=== PATIENT | male | born 1955 | race Caucasian/White ===

== ENCOUNTER 2019-02-20 08:49 | Day surgery (SDC) | payer BC ==
[2019-02-19 16:28] VITALS: BMI 30.2
[2019-02-20 09:15] VITALS: TEMP 98.2
[2019-02-20 11:35] VITALS: BP 118/64; PULSE 64
--- NOTE | 2019-02-21 11:26 | PATH ---
Surgical Pathology Report Patient Name: JENNY BONE [facility]. Rec. #: [id number] /Age/Gender: 1955 (Age: 63) / M Account: [id number] Location: [facility]OSCOPY Taken: 02/20/2019 Received: 02/20/2019 Reported: 02/21/2019 Physicians: Curtis Mario M.D. Specimen(s) Received A: RECTUM B: SIGMOID Clinical History Colon polyps, surveillance, hemorrhoids Final Diagnosis A. RECTUM, POLYPS, BIOPSY: HYPERPLASTIC POLYP(S). B. SIGMOID COLON, POLYPS, BIOPSY: TUBULAR ADENOMA(S). HYPERPLASTIC POLYP(S). Electronically Signed Letitia Cao M.D. Gross Description A. Received in formalin, labeled "polyps rectum" are 2 bauman, irregular portions of soft tissue measuring 0.3 cm. in greatest dimension. The specimens are submitted in toto in one cassette. B. Received in formalin, labeled "polyps sigmoid" are 9 bauman, irregular portions of soft tissue measuring 0.6 x 0.5 x 0.1cm. in aggregate. The specimens are submitted in toto in one cassette. SUSAN/02/20/2019 allegra/02/20/2019
== END 2019-02-20 11:41 | disposition home or self-care (01) ==
LOC: JASU-ENDO 08:49
PROVIDERS: ATTEND Internal Medicine Gastroenterology
PROC: 0DBN8ZX Excision of Sigmoid Colon, Via Natural or Artificial Opening Endoscopic, Diagnostic (ICD-10-PCS; 2019-02-20)
PROC: 0DBP8ZX Excision of Rectum, Via Natural or Artificial Opening Endoscopic, Diagnostic (ICD-10-PCS; principal; 2019-02-20 09:45)
DX: Z12.11 Encounter for screening for malignant neoplasm of colon (principal); K62.1 Rectal polyp; D12.5 Benign neoplasm of sigmoid colon; K57.30 Diverticulosis of large intestine without perforation or abscess without bleeding; E11.9 Type 2 diabetes mellitus without complications
CPT/HCPCS: 88305-TC

== ENCOUNTER 2019-10-19 13:59 | Emergency (ER) | payer BC ==
[2019-10-19 14:11] VITALS: BMI 28.7
[2019-10-19] MEDS ORDERED: SODIUM CHLORIDE 0.9% 500 ML INFUS.BAG IV ONE (14:34)
--- NOTE | 2019-10-19 15:08 | PDOC ---
*Physical Exam - Vital Signs Last Vital Signs Temp Pulse Resp BP Pulse Ox 98.4 F 83 16 149/76 98 10/19/19 14:07 10/19/19 14:07 10/19/19 14:07 10/19/19 14:07 10/19/19 14:07 ED Treatment Course - LABORATORY CBC & Chemistry Diagram: 10/19/19 15:20 10/19/19 15:20 Medical Decision Making - Medical Decision Making 10/19/19 15:08 Pt seen by Midlevel Provider under my direct supervision Pt interviewed and examined Ancillary studies reviewed Laboratory Tests 10/19/19 10/19/19 10/19/19 15:20 15:20 15:20 WBC 8.3 Neutrophils % 79.4 BUN 22.0 H Creatinine 1.3 Random Glucose 521 H* Synovial WBC 06926 I agree with plan as outlined by Midlevel Provider 10/19/19 18:21 Discharge - Discharge Information Condition: Stable - Follow up/Referral Referrals: Cory Vaz MD [Primary Care Provider] - - Patient Discharge Instructions - Post Discharge Activity
[2019-10-19] MEDS ORDERED: CEFAZOLIN 1 GM PUSH 1 GM/10 ML SYRINGE IVPUSH ONE (15:30)
--- NOTE | 2019-10-19 15:36 | PDOC ---
History of Present Illness - General Chief Complaint: Wound Stated Complaint: wound Time Seen by Provider: 10/19/19 14:18 History Source: Patient Exam Limitations: No Limitations - History of Present Illness Initial Comments: 10/19/19 15:28 Pt is a 64 y/o male with a history of Type II DM with a last A1C of ~8 presents to the ED with 7 days of R elbow pain, swelling and redness. He states the redness and swelling has been worsening over the last week. He admits to picking a scab at some point and red blood was draining. He denies any fevers or chills. He denies any change in appetite. He has not taken anything for his elbow. He states his elbow feels tight to move but does not hurt. He denies any other past medical history . Past History - Past Medical History Allergies/Adverse Reactions: Allergies Allergy/AdvReac Type Severity Reaction Status Date / Time bee venom protein (honey bee) Allergy Verified 02/19/19 16:23 shellfish derived Allergy Verified 02/19/19 16:23 Penicillins AdvReac Vomiting, Verified 02/20/19 08:59 DIARRHEA Home Medications: Ambulatory Orders Ascorbate Calcium [Vitamin C] 500 mg PO DAILY 02/19/19 Gabapentin 600 mg PO TID 02/19/19 Glipizide 10 mg PO DAILY 02/19/19 Linagliptin [Tradjenta] 5 mg PO DAILY 02/19/19 Multivitamin [Poly-Vitamin] 1 each PO DAILY 02/19/19 Silodosin [Rapaflo] 8 mg PO DAILY 02/19/19 Doxycycline Hyclate 100 mg PO BID 10 Days #20 tablet 10/19/19 COPD: No Diabetes: Yes HTN: No - Surgical History Cholecystectomy: No - Immunization History Immunization Up to Date: No - Psycho Social/Smoking Cessation Hx Smoking History: Never smoked Have you smoked in the past 12 months: No If you are a former smoker, when did you quit?: 2010 Information on smoking cessation initiated: No Hx Alcohol Use: No Drug/Substance Use Hx: No Substance Use Type: None Hx Substance Use Treatment: No Review of Systems - Review of Systems Comments:: 10/19/19 15:31 - Review of Systems Able to Perform ROS?: Yes Constitutional: No: Fever, Chills, Loss of Appetite, Night Sweats, Weakness Respiratory: No: Cough, Shortness of Breath, Wheezing, Sputum Production Cardiac (ROS): No: Chest Pain, Chest Tightness, Palpitations, Irregular Heart Beat, Edema ABD/GI: No: Nausea, Vomiting, Abdominal Pain, Diarrhea Musculoskeletal: No: Muscle Pain, Back Pain, Joint Pain, Muscle Weakness, Neck Pain Integumentary: R elbow redness, swelling, no pain with ROM Neurological: No: Headache, Numbness, Tingling, Weakness, Speech Difficulties *Physical Exam - Vital Signs Last Vital Signs Temp Pulse Resp BP Pulse Ox 98.4 F 83 16 149/76 98 10/19/19 14:07 10/19/19 14:07 10/19/19 14:07 10/19/19 14:07 10/19/19 14:07 - Physical Exam 10/19/19 15:32 - Physical Exam General Appearance: Nourished, Appropriately Dressed, No Distress Neck: Supple, No Rigidity, No Decreased range of motion Respiratory/Chest: Lungs Clear, Normal Breath Sounds. No Respiratory Distress, No Accessory Muscle Use Cardiovascular: Regular Rhythm, Regular Rate, S1, S2 Gastrointestinal/Abdominal: Normal Bowel Sounds, Soft. Non-tender, No Guarding , No Rebound, No Rigidity Musculoskeletal: Normal Inspection. No Decreased Range of Motion; Normal ROM of the R elbow without any tenderness Extremity: Normal Capillary Refill, Normal Inspection Integumentary: Normal Color, Dry. No Rash; R olecranon bursitis with fluctuance appreciated. No drainage appreciated. Erythema/cellulitis appreciated from the mid forearm to the mid upper arm and not Circumferential. 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, Fully Oriented, Alert, Normal Mood/Affect, Normal Response Procedures - Arthrocentesis Indication: Other (Olecranon bursitis possible infected) Arthrocentesis Site: right: elbow Flexion: >30 degrees Betadine Prep: Yes Sterile Dressing Applied: Yes Fluid Color: Bloody (Serosanguineous) Fluid Amount mL: 2 Needle Size (guage): 18g Complications: No ED Treatment Course - LABORATORY CBC & Chemistry Diagram: 10/19/19 15:20 10/19/19 15:20 - ADDITIONAL ORDERS Additional order review: 10/19/19 20:01 Laboratory Tests 10/19/19 10/19/19 10/19/19 15:20 15:20 15:20 WBC 8.3 RBC 5.15 Hgb 15.5 Hct 46.1 MCV 89.5 MCH 30.1 MCHC 33.6 RDW 13.1 Plt Count 157 MPV 9.1 Absolute Neuts (auto) 6.6 Neutrophils % 79.4 Lymphocytes % 12.0 Monocytes % 7.6 Eosinophils % 0.7 Basophils % 0.3 Nucleated RBC % 0 PT with INR 11.70 INR 0.99 PTT (Actin FS) 32.3 Sodium 136 Potassium 4.3 Chloride 99 Carbon Dioxide 31 Anion Gap 6 L BUN 22.0 H Creatinine 1.3 Est GFR (CKD-EPI)AfAm 66.83 Est GFR (CKD-EPI)NonAf 57.66 POC Glucometer Random Glucose 521 H* Calcium 9.6 Total Bilirubin 0.6 AST 34 ALT 93 H Alkaline Phosphatase 64 Total Protein 7.0 Albumin 3.9 Synovial Source Synovial WBC Synovial RBC Synovial Neutrophils Synovial Lymphocytes Synovial Monocytes Synovial Histocytes Synovial Plasma Cells Synovial LE Cells Synovial Macrophages Synovial Other Cells Synovial Diff Comment Synovial Crystals 10/19/19 10/19/19 10/19/19 15:20 15:20 17:18 WBC RBC Hgb Hct MCV MCH MCHC RDW Plt Count MPV Absolute Neuts (auto) Neutrophils % Lymphocytes % Monocytes % Eosinophils % Basophils % Nucleated RBC % PT with INR INR PTT (Actin FS) Sodium Potassium Chloride Carbon Dioxide Anion Gap BUN Creatinine Est GFR (CKD-EPI)AfAm Est GFR (CKD-EPI)NonAf POC Glucometer 436 Random Glucose Calcium Total Bilirubin AST ALT Alkaline Phosphatase Total Protein Albumin Synovial Source Synovial fluid Synovial WBC 34621 Synovial RBC 43566 Synovial Neutrophils 94 Synovial Lymphocytes 1 Synovial Monocytes 5 Synovial Histocytes No Result Required. Synovial Plasma Cells No Result Required. Synovial LE Cells No Result Required. Synovial Macrophages No Result Required. Synovial Other Cells No Result Required. Synovial Diff Comment No Result Required. Synovial Crystals Negative - RADIOLOGY Radiology Studies Ordered: Category Date Time Status ELBOW-RIGHT [RAD] Stat Radiology 10/19/19 14:34 Ordered Radiograph Interpretation: 10/19/19 15:57 R elbow xray wet read: no acute fracture or dislocation. No evidence of gas on xray. Medical Decision Making - Medical Decision Making 10/19/19 17:38 Patient's elbow aspiration does not show concern for infection in the joint as the WBC count was 15,000. This is more indicative of an inflammatory process. The patient's blood glucose levels was 512 mg/dL and the patient admits that he did not take his diabetes medication yesterday or today. After 2 L of normal saline, the patient's blood glucose level was 436 mg/dL. 2 units of insulin IV was given and we will reassess the patient in roughly 30 minutes. He otherwise feels well. If his blood glucose level is downtrending we will consider discharge on doxycycline with follow-up to orthopedics. 10/19/19 19:48 Pt blood glucose now 390 mg/dL and downtrending. He will go home and take his normal DM medications and Has been encouraged to be diligent about checking his sugars. He will follow-up with orthopedics within 1 to 2 days for repeat evaluation. He has been given strict return precautions such as high fevers, shaking chills, profuse vomiting, worsening elbow erythema, pain with elbow range of motion, red streaking or any other worsening symptoms. He has been encouraged to complete his antibiotic course. He understands and agrees with this treatment plan and the patient is stable for discharge. Discharge - Discharge Information Problems reviewed: Yes Clinical Impression/Diagnosis: Olecranon bursitis of right elbow, Cellulitis of right upper extremity Condition: Stable Disposition: HOME - Additional Discharge Information Prescriptions: Doxycycline Hyclate 100 mg PO BID 10 Days #20 tablet - Follow up/Referral Referrals: Cory Vaz MD [Primary Care Provider] - Ashu Monk MD [Staff Physician] - - Patient Discharge Instructions Patient Printed Discharge Instructions: DI for Elbow Bursitis, DI for Cellulitis -- Adult Additional Instructions: Take the antibiotics as prescribed and complete the entire course. Be sure to follow-up with your primary doctor or Dr. Monk of orthopedics within 1 to 2 days for repeat evaluation. Return to the emergency department for high fevers , shaking chills, red streaking, worsening cellulitis, pain with bending your elbow, profuse vomiting, pus from your elbow or any other worsening symptoms. - Post Discharge Activity Work/Back to School Note: Back to Work
[2019-10-19] MEDS ORDERED: CEFAZOLIN 1 GM/D5W 1 GM/50 ML BAG IVPB ONE (16:00)
[2019-10-19 16:01] LABS: BASO % 0.3 % (0-2.0); EOS % 0.7 % (0-4.5); HEMATOCRIT 46.1 % (35.4-49); HEMOGLOBIN 15.5 GM/dL (11.7-16.9); MCH 30.1 pg (25.7-33.7); MCHC 33.6 g/dl (32.0-35.9); MEAN CELL VOLUME 89.5 fl (80-96); MEAN PLT VOLUME 9.1 fl (7.5-11.1); MONO % 7.6 % (3.8-10.2); NEUT % 79.4 % (42.8-82.8); PLATELET COUNT 157 K/MM3 (134-434); RBC 5.15 M/mm3 (4.00-5.60); RDW 13.1 % (11.9-15.9); WHITE BLOOD COUNT 8.3 K/mm3 (4.0-10.0)
[2019-10-19 16:10] LABS: INR 0.99 (0.83-1.09); PROTHROMBIN TIME (PATIENT) 11.7 SEC (9.7-13.0)
[2019-10-19 16:13] LABS: ACTIVATED PTT 32.3 SECONDS (25.2-36.5)
[2019-10-19] MEDS ORDERED: CEFAZOLIN 1 GM/D5W 1 GM/50 ML BAG ONE (16:14)
[2019-10-19 16:29] LABS: ALBUMIN 3.9 g/dl (3.4-5.0); BILIRUBIN,TOTAL 0.6 mg/dL (0.2-1); CALCIUM 9.6 mg/dL (8.5-10.1); CREATININE 1.3 mg/dL (0.55-1.3); POTASSIUM 4.3 mmol/L (3.5-5.1)
[2019-10-19 17:00] LABS: SYNOVIAL FLUID SOURCE SYNOVIAL FLUID
[2019-10-19 17:01] LABS: SYNOVIAL FLUID LYMPHOCYTES 1 %; SYNOVIAL FLUID MONOCYTES 5 %; SYNOVIAL FLUID NEUTROPHILS 94 %; SYNOVIAL FLUID RBC 24781 /mm3
[2019-10-19] MEDS ORDERED: INSULIN REGULAR HUMAN 100 UNITS/ML *VIAL IVPUSH ONE (17:30)
[2019-10-19 20:16] VITALS: BP 140/78; PULSE 80; TEMP 98.7
== END 2019-10-19 20:15 | disposition home or self-care (01) ==
LOC: JER 13:59
PROC: 0M933ZZ Drainage of Right Elbow Bursa and Ligament, Percutaneous Approach (ICD-10-PCS; principal; 2019-10-19)
PROC: 3E03329 Introduction of Other Anti-infective into Peripheral Vein, Percutaneous Approach (ICD-10-PCS; 2019-10-19)
PROC: 3E033VG Introduction of Insulin into Peripheral Vein, Percutaneous Approach (ICD-10-PCS; 2019-10-19)
DX: M70.21 Olecranon bursitis, right elbow (principal); L03.113 Cellulitis of right upper limb; E11.65 Type 2 diabetes mellitus with hyperglycemia; Z79.84 Long term (current) use of oral hypoglycemic drugs; Z91.013 Allergy to seafood; Z88.0 Allergy status to penicillin; Z91.030 Bee allergy status
CPT/HCPCS: 36415; 73070-TC-RT-FY; 80053; 82962; 85025; 85610; 85730; 87040; 87070; 87075; 87186; 87205; 89051; 89060; 99283-25

== ENCOUNTER 2019-10-20 22:25 | Inpatient (IN) | payer BC ==
[2019-10-20 23:01] VITALS: BMI 28.7
--- NOTE | 2019-10-20 23:30 | PDOC ---
History of Present Illness - General Chief Complaint: Edema Stated Complaint: SENT BY DOCTOR Time Seen by Provider: 10/20/19 23:30 History Source: Patient Exam Limitations: No Limitations - History of Present Illness Initial Comments: 10/20/19 23:42 64yM w PMHx DM, mitral valve prolapse presenting w 7d worsening R elbow warmth, erythema. Yesterday diagnosed with R olecranon bursitis and cellulitis, hyperglycemia BG 512, given IV ancef and insulin, bursitis drained, arm XR no fracture or bony involvement, discharged on doxycycline. Today noted R arm swelling and spreading erythema. Normal arm sensation/movement, denies arm pain. Denies fever/chills, nausea/vomiting, cough, chest pain, SOB. Pt's allergy to penicillins is nausea Past History - Past Medical History Allergies/Adverse Reactions: Allergies Allergy/AdvReac Type Severity Reaction Status Date / Time bee venom protein (honey bee) Allergy Verified 02/19/19 16:23 shellfish derived Allergy Verified 02/19/19 16:23 Penicillins AdvReac Vomiting, Verified 02/20/19 08:59 DIARRHEA Home Medications: Ambulatory Orders Ascorbate Calcium [Vitamin C] 500 mg PO DAILY 02/19/19 Gabapentin 600 mg PO TID 02/19/19 Glipizide 10 mg PO DAILY 02/19/19 Linagliptin [Tradjenta] 5 mg PO DAILY 02/19/19 Multivitamin [Poly-Vitamin] 1 each PO DAILY 02/19/19 Silodosin [Rapaflo] 8 mg PO DAILY 02/19/19 Doxycycline Hyclate 100 mg PO BID 10 Days #20 tablet 10/19/19 Cardiac Disorders: Yes (Mitral Valve prolapse) COPD: No Diabetes: Yes HTN: No - Surgical History Cholecystectomy: No - Immunization History Immunization Up to Date: No - Psycho Social/Smoking Cessation Hx Smoking History: Former smoker Have you smoked in the past 12 months: No If you are a former smoker, when did you quit?: 2010 Information on smoking cessation initiated: No Hx Alcohol Use: No Drug/Substance Use Hx: No Substance Use Type: None Hx Substance Use Treatment: No Review of Systems - Review of Systems Constitutional: No: Chills, Fever HEENTM: No: Blurred Vision, Nose Pain, Throat Pain, Mouth Pain Respiratory: No: Cough, Shortness of Breath Cardiac (ROS): No: Chest Pain, Palpitations, Syncope ABD/GI: No: Abdominal Distended, Constipated, Diarrhea, Nausea, Vomiting : No: Burning, Dysuria, Discharge, Hematuria Musculoskeletal: No: Back Pain, Joint Pain Integumentary: No: Bruising, Flushing, Lesions Neurological: No: Headache, Seizure, Tingling Psychiatric: No: Anxiety, Depression, Stressors Endocrine: No: Excessive Sweating, Flushing, Intolerance to Cold, Intolerance to Heat Hematologic/Lymphatic: No: Anemia, Blood Clots *Physical Exam - Vital Signs Last Vital Signs Temp Pulse Resp BP Pulse Ox 98.5 F 76 19 127/64 95 10/20/19 22:57 10/20/19 22:57 10/20/19 22:57 10/20/19 22:57 10/20/19 22:57 - Physical Exam General Appearance: Yes: Nourished, Appropriately Dressed. No: Apparent Distress HEENT: positive: EOMI, PAPI, Normal Voice, Hearing Grossly Normal. negative: Scleral Icterus (R), Scleral Icterus (L), Nasal Congestion, Rhinorrhea Respiratory/Chest: positive: Lungs Clear, Normal Breath Sounds. negative: Chest Tender, Respiratory Distress, Crackles, Rales, Rhonchi, Stridor, Wheezing Cardiovascular: positive: Regular Rhythm, Regular Rate, S1, S2, Other (mitral valve prolapse) Integumentary: positive: Erythema (R arm), Other (R elbow 5cm non tender mobile mass. 2+ R arm edema, warmth up to mid humerus. Not tender. 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 negative: Numbness, Sensory Deficit, Confused, Disoriented ED Treatment Course - LABORATORY CBC & Chemistry Diagram: 10/20/19 00:30 10/20/19 00:30 Medical Decision Making - Medical Decision Making 10/20/19 23:47 EKG NSR, HR 63, QTc 427, no ST changes normal WBC --- 64yM w PMHx NIDDM, mitral valve prolapse presenting w 7d worsening R elbow warmth, erythema, edema d/t cellulitis. Low concern for nec fasciits (yesterday XR no boy involvement). Neurovascular intact. Also hyperglycemic BG 304 Pt developed skin slouging, redness from Tegaderm over peripheral IV. Re- secured with paper tape Given vancomycin, clindamycin. Pending blood cultures Admit m/s hospitalist for cellulitis failing outpatient therapy, requiring IV antibiotics PCP Dr Cory Vaz Discharge - Discharge Information Problems reviewed: Yes Clinical Impression/Diagnosis: Cellulitis Qualifiers: Site of cellulitis: extremity Site of cellulitis of extremity: upper extremity Laterality: right Qualified Code(s): L03.113 - Cellulitis of right upper limb Condition: Good - Follow up/Referral Referrals: Cory Vaz MD [Primary Care Provider] - - Patient Discharge Instructions - Post Discharge Activity
--- NOTE | 2019-10-20 23:32 | PDOC ---
Attending Attestation - Resident Resident Name: Aram Jackson - ED Attending Attestation I have performed the following: I have examined & evaluated the patient, The case was reviewed & discussed with the resident, I agree w/resident's findings & plan - HPI HPI: 10/20/19 23:31 Pt comes with worsening cellulitis over his elbow. He was seen here yesterday in the fast track area. - Physicial Exam PE: 10/21/19 02:53 Agree with resident exam. - Medical Decision Making 10/21/19 02:53 Pt comes with worsening cellulitis and poorly controlled DM; despite outpatient abx. Pt will be admitted for IV abx.
[2019-10-20] MEDS ORDERED: VANCOMYCIN 1 GM in D5W (PRE-DOCKED) 1,000 MG/250 ML IVPB ONE (23:40)
[2019-10-21] MEDS ORDERED: CLINDAMYCIN 600MG PREMIX IVPB 600 MG/50 ML BAG IVPB ONE ×2 (00:10→01:09)
[2019-10-21 01:05] LABS: BASO % 0.3 % (0-2.0); EOS % 0.6 % (0-4.5); HEMATOCRIT 44.7 % (35.4-49); HEMOGLOBIN 15.6 GM/dL (11.7-16.9); LYMPH % 12.9 % (8-40); MCH 31.3 pg (25.7-33.7); MCHC 34.9 g/dl (32.0-35.9); MEAN CELL VOLUME 89.4 fl (80-96); MEAN PLT VOLUME 8.9 fl (7.5-11.1); NEUT % 77.2 % (42.8-82.8); PLATELET COUNT 157 K/MM3 (134-434)
[2019-10-21] MEDS ORDERED: VANCOMYCIN 1 GRAM (PRE-DOCKED) 1,000 MG/250 ML BAG IVPB ONE (01:09)
[2019-10-21 01:25] LABS: ALBUMIN 3.8 g/dl (3.4-5.0); BILIRUBIN,TOTAL 0.5 mg/dL (0.2-1); BLOOD UREA NITROGEN 24.4 mg/dL (7-18); CALCIUM 8.9 mg/dL (8.5-10.1); CREATININE 1.3 mg/dL (0.55-1.3); POTASSIUM 4.2 mmol/L (3.5-5.1); TOT PROT 6.6 g/dl (6.4-8.2)
--- NOTE | 2019-10-21 01:59 | PN ---
Teaching Attending Note Name of Resident: Laila Bustillo ATTENDING PHYSICIAN STATEMENT I saw and evaluated the patient. I reviewed the resident's note and discussed the case with the resident. I agree with the resident's findings and plan as documented. SUBJECTIVE: 64yM w PMHx DM, mitral valve prolapse presenting w 7d worsening R elbow warmth, erythema. Yesterday came to the emergency room and underwent arthrocentesis of her right elbow, synovial fluid culture is pending, found to have 15 K WBC, 94% neutrophils, negative crystals. Patient was discharged home on p.o. doxycycline and was to follow-up with his PCP. He was thought to have right olecranon bursitis. X-ray was performed at that time and showed no fracture or bony involvement.Patient return to the emergency room after right arm swelling and erythema was worsening. X-ray of right elbow from 10/19/2019 showed soft tissue swelling by olecranon. No sign of fracture and no sign of calcifications. OBJECTIVE: Last Vital Signs Temp Pulse Resp BP Pulse Ox 98.5 F 76 19 127/64 95 10/20/19 22:57 10/20/19 22:57 10/20/19 22:57 10/20/19 22:57 10/20/19 22:57 GENERAL: Well developed, well nourished. Awake and alert. No acute distress. HEENT: Normocephalic, atraumatic. PERRLA, EOMI. No conjunctival pallor. Sclera are non- icteric. Moist mucous membranes. Oropharynx is clear. NECK: Supple. Full ROM. No JVD. Carotid pulses 2+ and symmetric, without bruits. No thyromegaly. No lymphadenopathy. CARDIOVASCULAR: Regular rate and rhythm. No murmurs, rubs, or gallops. Distal pulses are 2+ and symmetric. PULMONARY: No evidence of respiratory distress. Lungs clear to auscultation bilaterally. No wheezing, rales or rhonchi. ABDOMINAL: Soft. Non-tender. Non-distended. No rebound or guarding. No organomegaly. Normoactive bowel sounds. MUSCULOSKELETAL Normal range of motion at all joints. No bony deformities or tenderness. No CVA tenderness. EXTREMITIES: Right elbow erythema, tenderness, limited ROM. SKIN: Warm and dry. Normal capillary refill. No rashes. No jaundice. PSYCHIATRIC: Cooperative. Good eye contact. Appropriate mood and affect. Abnormal Lab Results 10/20/19 10/20/19 00:30 00:30 Anion Gap 5 L BUN 24.4 H Random Glucose 304 H ALT 84 H C-Reactive Protein 3.4 H Imaging studies reviewed ASSESSMENT AND PLAN: 64-year-old male with severe uncontrolled diabetes with worsening right elbow cellulitis. Due to 14K neutrophils, neutrophil predominance on synovial tap, severely uncontrolled DM, I have moderate suspicion for possible septic arthritis. No crystals seen to suggest crystal arthropathy. Would treat empirically for septic arthritis. Admit to [facility] [place] Follow-up blood culture sent for emergency room Vancomycin and ceftriaxone empirically Follow-up synovial fluid culture from 10/19/2019 would continue antibiotics above at least until synovial fluid comes back as negative Tight glucose control Send A1c Diabetic diet, low-sodium diet Send ESR infectious disease consultation Heparin subcutaneously for DVT prophylaxis
[2019-10-21] MEDS ORDERED: INSULIN REGULAR HUMAN 100 UNITS/ML *VIAL SQ ONE (02:53)
--- NOTE | 2019-10-21 03:36 | HP ---
CHIEF COMPLAINT: worsening elbow swelling PCP: Dr Vaz HISTORY OF PRESENT ILLNESS: 64 yo male with a history of uncontrolled DM with neuropathy and mitral valve prolapse presented to the ED with 10 days of worsening right elbow warmth, erythema and swelling. The patient states that he believes a blister on his elbow became infected after he picked at the scab. The patient had previously been treated in the ED yesterday for the same symptoms. The patient was discharged after draining his elbow 10/19/19, XR showed no fractures or bony involvement, given IV ancef, insulin, and discharged on PO doxycycline. Patient returned to the ED today after the swelling and erythema spread further on his arm. Patient denies pain, change in sensation or ROM, fever, or chills. ER course was notable for: (1) VSS, CBC unremarkable, CMPP, BUN/Cr 24.4/1.3, BG 304, ALT 84, CRP 3.4, ESR 18 (2) Xray no acute path, EKG NSR (3) vanco, clinda, insulin Recent Travel: denies PAST MEDICAL HISTORY: as above PAST SURGICAL HISTORY: denies FAMILY HX: immediate family with DM type 2 Social History: Smoking: former 1/2 pack to 2 PPD for over 30 yrs. quit 20 yrs ago Alcohol: social drinker Drugs: denies Allergies bee venom protein (honey bee) Allergy (Verified 02/19/19 16:23) shellfish derived Allergy (Verified 02/19/19 16:23) Penicillins Adverse Reaction (Verified 02/20/19 08:59) Vomiting, DIARRHEA HOME MEDICATIONS: Home Medications Medication Instructions Recorded Ascorbate Calcium [Vitamin C] 500 mg PO DAILY 02/19/19 Gabapentin 600 mg PO TID 02/19/19 Glipizide 10 mg PO DAILY 02/19/19 Linagliptin [Tradjenta] 5 mg PO DAILY 02/19/19 Multivitamin [Poly-Vitamin] 1 each PO DAILY 02/19/19 Silodosin [Rapaflo] 8 mg PO DAILY 02/19/19 Doxycycline Hyclate 100 mg PO BID 10 Days #20 tablet 10/19/19 REVIEW OF SYSTEMS CONSTITUTIONAL: Absent: fever, chills, diaphoresis, generalized weakness, malaise, loss of appetite, weight change HEENT: Absent: rhinorrhea, nasal congestion, throat pain, throat swelling, difficulty swallowing, mouth swelling, ear pain, eye pain, visual changes CARDIOVASCULAR: Absent: chest pain, syncope, palpitations, irregular heart rate, lightheadedness , peripheral edema RESPIRATORY: Absent: cough, shortness of breath, dyspnea with exertion, orthopnea, wheezing, stridor, hemoptysis GASTROINTESTINAL: Absent: abdominal pain, abdominal distension, nausea, vomiting, diarrhea, constipation, melena, hematochezia GENITOURINARY: Absent: dysuria, frequency, urgency, hesitancy, hematuria, flank pain, genital pain MUSCULOSKELETAL: joint swelling Absent: myalgia, arthralgia, back pain, neck pain SKIN: Absent: rash, itching, pallor HEMATOLOGIC/IMMUNOLOGIC: Absent: easy bleeding, easy bruising, lymphadenopathy, frequent infections ENDOCRINE: Absent: unexplained weight gain, unexplained weight loss, heat intolerance, cold intolerance NEUROLOGIC: Absent: headache, focal weakness or paresthesias, dizziness, unsteady gait, seizure, mental status changes, bladder or bowel incontinence PSYCHIATRIC: Absent: anxiety, depression, suicidal or homicidal ideation, hallucinations. PHYSICAL EXAMINATION Vital Signs - 24 hr 10/20/19 22:57 Temperature 98.5 F Pulse Rate 76 Respiratory 19 Rate Blood Pressure 127/64 O2 Sat by Pulse 95 Oximetry (%) GENERAL: Awake, alert, and fully oriented, in no acute distress. HEAD: Normal with no signs of trauma. EYES: Pupils equal, round and reactive to light, extraocular movements intact, sclera anicteric, conjunctiva clear. No lid lag. EARS, NOSE, THROAT: oropharynx clear without exudates. Moist mucous membranes. NECK: Normal range of motion, supple without lymphadenopathy, JVD, or masses. LUNGS: Breath sounds equal, clear to auscultation bilaterally. No wheezes, and no crackles. No accessory muscle use. HEART: Regular rate and rhythm, normal S1 and S2 without murmur, rub or gallop. ABDOMEN: Soft, nontender, not distended, normoactive bowel sounds, no guarding, no rebound, no masses. No hepatomegaly or splenomegaly. MUSCULOSKELETAL: Normal range of motion at all joints except for right shoulder from arthritis.erythema at the Right elbow without tenderness UPPER EXTREMITIES: 2+ pulses, warm, well-perfused. No cyanosis. No clubbing. No peripheral edema. LOWER EXTREMITIES: 2+ pulses, warm, well-perfused. No calf tenderness. 1+ edema . PSYCHIATRIC: Cooperative. Good eye contact. Appropriate mood and affect. SKIN: fluid collection with pus collection under point of injury. surrounding erythema Laboratory Results - last 24 hr 10/20/19 10/20/19 10/20/19 00:30 00:30 00:30 WBC 9.0 RBC 5.00 Hgb 15.6 Hct 44.7 MCV 89.4 MCH 31.3 MCHC 34.9 RDW 13.0 Plt Count 157 MPV 8.9 Absolute Neuts (auto) 7.0 Neutrophils % 77.2 Lymphocytes % 12.9 Monocytes % 9.0 Eosinophils % 0.6 Basophils % 0.3 Nucleated RBC % 0 ESR Sodium 138 Potassium 4.2 Chloride 103 Carbon Dioxide 30 Anion Gap 5 L BUN 24.4 H Creatinine 1.3 Est GFR (CKD-EPI)AfAm 66.83 Est GFR (CKD-EPI)NonAf 57.66 Random Glucose 304 H Calcium 8.9 Total Bilirubin 0.5 AST 31 ALT 84 H Alkaline Phosphatase 59 C-Reactive Protein 3.4 H Total Protein 6.6 Albumin 3.8 10/20/19 00:30 WBC RBC Hgb Hct MCV MCH MCHC RDW Plt Count MPV Absolute Neuts (auto) Neutrophils % Lymphocytes % Monocytes % Eosinophils % Basophils % Nucleated RBC % ESR 18 Sodium Potassium Chloride Carbon Dioxide Anion Gap BUN Creatinine Est GFR (CKD-EPI)AfAm Est GFR (CKD-EPI)NonAf Random Glucose Calcium Total Bilirubin AST ALT Alkaline Phosphatase C-Reactive Protein Total Protein Albumin ASSESSMENT/PLAN: 64 yo male with a history of uncontrolled DM with neuropathy and mitral valve prolapse presented to the ED with 10 days of worsening right elbow warmth, erythema and swelling. failed outpatient treatment and worsening swelling R elbow cellulitis/bursitis cant r/o septic arthritis in the setting of severe uncontrolled diabetes Arthrocentis from 10/19/19: 14K neutrophils, neutrophil predominance 94%. No crystals seen to suggest crystal arthropathy empiric treatment for septic arthritis until synovial culture returns cont with vanco and ceftriaxone daily F/u blood culture and arthrocenthesis cultures ID Dr Patten consulted Uncontrolled DM BG 500s on admission-> 300s after insulin BGM ISS HbA1C UA for proteinuria diabetic diet cont gabapentin for diabetic neuropathy once med rec FEN No standing fluids monitor lytes diabetic diet DVT hep subQ admit to medsurg Visit type - Emergency Visit Emergency Visit: Yes ED Registration Date: 10/21/19 Care time: The patient presented to the Emergency Department on the above date and was hospitalized for further evaluation of their emergent condition. - New Patient This patient is new to me today: Yes Date on this admission: 10/21/19 - Critical Care Critical Care patient: No ATTENDING PHYSICIAN STATEMENT I saw and evaluated the patient. I reviewed the resident's note and discussed the case with the resident. I agree with the resident's findings and plan as documented. SUBJECTIVE: OBJECTIVE: ASSESSMENT AND PLAN:
[2019-10-21] MEDS ORDERED: INSULIN REGULAR HUMAN 100 UNITS/ML *VIAL ONE (03:46)
[2019-10-21] MEDS ORDERED: INSULIN (NOVOLOG) ASPART 100 UNITS/ML 10ML VIAL ONE (07:49)
[2019-10-21] MEDS: INSULIN SLIDING SCALE (NOVOLOG) 1 VIAL SQ SCH ×4 (07:51→21:00)
[2019-10-21] MEDS: GABAPENTIN 300 MG CAPSULE (FP) PO SCH ×3 (07:52→21:00)
[2019-10-21] MEDS: HEPARIN NA (PORCINE) 5,000 UNITS/ML 1ML VIAL SQ SCH ×3 (07:53→21:00)
[2019-10-21 08:55] LABS: BASO % 0.3 % (0-2.0); EOS % 0.8 % (0-4.5); HEMATOCRIT 41.1 % (35.4-49); HEMOGLOBIN 14.3 GM/dL (11.7-16.9); LYMPH % 14.3 % (8-40); MCH 30.6 pg (25.7-33.7); MCHC 34.9 g/dl (32.0-35.9); MEAN CELL VOLUME 87.7 fl (80-96); MEAN PLT VOLUME 8.5 fl (7.5-11.1); MONO % 10.1 % (3.8-10.2); NEUT % 74.5 % (42.8-82.8); PLATELET COUNT 134 K/MM3 (134-434); RBC 4.69 M/mm3 (4.00-5.60); RDW 13.3 % (11.9-15.9); WHITE BLOOD COUNT 6.5 K/mm3 (4.0-10.0)
[2019-10-21] MEDS ORDERED: DEXTROSE 5%-WATER 100 ML IVPB ONE (09:04)
[2019-10-21 09:22] LABS: ALBUMIN 3.3 g/dl (3.4-5.0); BILIRUBIN,TOTAL 0.4 mg/dL (0.2-1); BLOOD UREA NITROGEN 20.1 mg/dL (7-18); CALCIUM 8.6 mg/dL (8.5-10.1); MAGNESIUM 2.2 mg/dL (1.8-2.4); PHOSPHOROUS 3.1 mg/dL (2.5-4.9); POTASSIUM 3.9 mmol/L (3.5-5.1); TOT PROT 5.8 g/dl (6.4-8.2)
--- NOTE | 2019-10-21 09:41 | EKG ---
Test Reason : Blood Pressure : / mmHG Vent. Rate : 063 BPM Atrial Rate : 063 BPM P-R Int : 136 ms QRS Dur : 096 ms QT Int : 418 ms P-R-T Axes : 050 000 037 degrees QTc Int : 427 ms NORMAL SINUS RHYTHM NORMAL ECG NO PREVIOUS ECGS AVAILABLE Confirmed by FERNANDO MEHTA MD ([id number]) on 10/21/2019 9:41:45 AM Referred By: Confirmed By:FERNANDO MEHTA MD
[2019-10-21] MEDS ORDERED: LISINOPRIL 5 MG TABLET (FP) PO SCH (10:00)
[2019-10-21] MEDS ORDERED: CEFTRIAXONE 2 GM-D5W BAG 2 GM/50 ML BAG IVPB SCH (10:00)
[2019-10-21] MEDS: TAMSULOSIN HCL 0.4 MG CAP PO SCH (10:09)
[2019-10-21] MEDS: CEFTRIAXONE 2 GM in DEXTROSE 5%-WATER 100 ML IVPB SCH (10:09)
[2019-10-21] MEDS: LISINOPRIL 5 MG TABLET (FP) PO SCH (10:09)
[2019-10-21] MEDS: ASPIRIN COATED 81 MG TABLET.EC PO SCH (10:10)
--- NOTE | 2019-10-21 13:24 | PN ---
Progress Note (short form) - Note Progress Note: ID consult dictated Olecronon bursitis- with cellulitis- staph aureus- sensitivities pending- please ask ortho to see if further drainage is needed continue rocephin/vancomycin f/u cultures poorly controlled DM_ hgba1c over 11 needs diabetic education Problem List - Problems (1) Olecranon bursitis of right elbow Code(s): M70.21 - OLECRANON BURSITIS, RIGHT ELBOW (2) Cellulitis of right upper extremity Code(s): L03.113 - CELLULITIS OF RIGHT UPPER LIMB (3) Poorly controlled diabetes mellitus Code(s): E11.65 - TYPE 2 DIABETES MELLITUS WITH HYPERGLYCEMIA
[2019-10-21] MEDS ORDERED: ONDANSETRON 4 MG TABLET PO ONE (13:52)
[2019-10-21] MEDS: VANCOMYCIN 1 GRAM (PRE-DOCKED) 1,000 MG/250 ML BAG IVPB SCH (14:40)
--- NOTE | 2019-10-21 15:54 | PN ---
Physical Exam: 64 M h/o uncontrolled T2DM, mitral valve prolapse presenting w/ 7d worsening R elbow warmth, erythema. Yesterday came to the emergency room and underwent arthrocentesis of her right elbow, found to have 15 K WBC, 94% neutrophils, negative crystals, +for S. aureus admitted for R olecronon bursitis started on Vanco/Ceftriaxone, preliminary culture showing S. aureus, pending sensitivities. Endorses improvement with R elbow pain, has more ROM than yesterday, denies fever chills but has some nausea. Otherwise VSS, no fevers. Will obtain ortho evaluation for further possible drainage. Vital Signs Period Temp Pulse Resp BP Sys/Rivera Pulse Ox Last 24 Hr 97.8 F-98.8 F 64-81 15-20 119-157/58-94 95 PE VSS GA comfortable, AAo3, speaking in full sentences HEENT NC/AT, EOMI, no cervical lymphadenopathy, neck supple Chest CTAB, no wheezing or crackles CVS S1, S2+, RRR Abd Soft, NT, ND, BS+ Ext No LE edema, R elbow with area of erythema extending slightly to forearm with small area of fluctuance, good passive and active ROM of R elbow, brachial/ radial pulses palpable, no axillary LN palpable, LUE unremarkable. Laboratory Results - last 24 hr 10/20/19 10/20/19 10/20/19 00:30 00:30 00:30 WBC 9.0 RBC 5.00 Hgb 15.6 Hct 44.7 MCV 89.4 MCH 31.3 MCHC 34.9 RDW 13.0 Plt Count 157 MPV 8.9 Absolute Neuts (auto) 7.0 Neutrophils % 77.2 Lymphocytes % 12.9 Monocytes % 9.0 Eosinophils % 0.6 Basophils % 0.3 Nucleated RBC % 0 ESR Sodium 138 Potassium 4.2 Chloride 103 Carbon Dioxide 30 Anion Gap 5 L BUN 24.4 H Creatinine 1.3 Est GFR (CKD-EPI)AfAm 66.83 Est GFR (CKD-EPI)NonAf 57.66 POC Glucometer Random Glucose 304 H Hemoglobin A1c % Calcium 8.9 Phosphorus Magnesium Total Bilirubin 0.5 AST 31 ALT 84 H Alkaline Phosphatase 59 C-Reactive Protein 3.4 H Total Protein 6.6 Albumin 3.8 10/20/19 10/21/19 10/21/19 00:30 07:46 07:52 WBC 6.5 RBC 4.69 Hgb 14.3 Hct 41.1 MCV 87.7 MCH 30.6 MCHC 34.9 RDW 13.3 Plt Count 134 MPV 8.5 Absolute Neuts (auto) 4.8 Neutrophils % 74.5 Lymphocytes % 14.3 Monocytes % 10.1 Eosinophils % 0.8 Basophils % 0.3 Nucleated RBC % 0 ESR 18 Sodium Potassium Chloride Carbon Dioxide Anion Gap BUN Creatinine Est GFR (CKD-EPI)AfAm Est GFR (CKD-EPI)NonAf POC Glucometer 212 Random Glucose Hemoglobin A1c % Calcium Phosphorus Magnesium Total Bilirubin AST ALT Alkaline Phosphatase C-Reactive Protein Total Protein Albumin 10/21/19 10/21/19 10/21/19 07:52 07:52 12:05 WBC RBC Hgb Hct MCV MCH MCHC RDW Plt Count MPV Absolute Neuts (auto) Neutrophils % Lymphocytes % Monocytes % Eosinophils % Basophils % Nucleated RBC % ESR Sodium 139 Potassium 3.9 Chloride 106 Carbon Dioxide 30 Anion Gap 4 L BUN 20.1 H Creatinine 1.0 Est GFR (CKD-EPI)AfAm 91.78 Est GFR (CKD-EPI)NonAf 79.19 POC Glucometer 177 Random Glucose 227 H Hemoglobin A1c % 11.5 H Calcium 8.6 Phosphorus 3.1 Magnesium 2.2 Total Bilirubin 0.4 AST 24 ALT 70 H Alkaline Phosphatase 51 C-Reactive Protein Total Protein 5.8 L Albumin 3.3 L Active Medications Generic Name Dose Route Start Last Admin Trade Name Freq PRN Reason Stop Dose Admin Aspirin 81 mg 10/21/19 10:00 10/21/19 10:10 Ecotrin - PO 81 mg DAILY MARVIN Administration Atorvastatin Calcium 10 mg 10/21/19 22:00 Lipitor - PO HS MARVIN Gabapentin 600 mg 10/21/19 06:30 10/21/19 15:02 Neurontin - PO 600 mg TID MARVIN Administration Heparin Sodium (Porcine) 5,000 unit 10/21/19 06:00 10/21/19 15:02 Heparin - SQ 5,000 unit TID MARVIN Administration Ceftriaxone Sodium 2 gm/ 100 mls @ 200 mls/hr 10/21/19 08:45 10/21/19 10:09 Dextrose IVPB 200 mls/hr DAILY MARVIN Administration Protocol Vancomycin HCl 1,000 mg in 250 mls @ 166.667 mls/hr 10/21/19 13:30 10/21/19 14:40 Vancomycin (Pre-Docked) IVPB 166.667 mls/hr Q12H MARVIN Administration Protocol Insulin Aspart 1 vial 10/21/19 07:00 10/21/19 12:18 Novolog Vial Sliding Scale - SQ 2 unit ACHS MARVIN Administration Protocol Lisinopril 5 mg 10/21/19 10:00 10/21/19 10:09 Prinivil PO 5 mg DAILY MARVIN Administration Tamsulosin HCl 0.4 mg 10/21/19 08:30 10/21/19 10:09 Flomax - PO 0.4 mg DAILY@0830 MARVIN Administration ASSESSMENT/PLAN: 64 M uncontrolled T2DM, admitted for R elbow olecronon bursitis s/p arthrocentesis, culture growing S. aureus w/ sensitivities pending, on Vanc/ Ceftriaxone course seems to be improving. R olecronon bursitis no signs of septic arthritis, growing S. aureus on joint aspirate culture, on Vanco/Ceftriaxone, obtain vancomycin troughs in AM, continue abx, warm compresses PRN Tylenol for pain, elevate RUE, await sensitivities Tight glucose control Ortho evaluation for further possible drainage ID consult: Dr. Patten T2Dm uncontrolled, improving FS inpatient will likely need insulin regimen to be discharged on cont. basal coverage and ISS HTn resume BP meds na trestricted diet DM neuropathy cont. Gabapentin DVT ppx: Lovenox SC T2DM diet Visit type - Emergency Visit Emergency Visit: Yes ED Registration Date: 10/21/19 Care time: The patient presented to the Emergency Department on the above date and was hospitalized for further evaluation of their emergent condition. - New Patient This patient is new to me today: Yes Date on this admission: 10/21/19 - Critical Care Critical Care patient: No - Discharge Referral Referred to [facility] Med [facility] No
--- NOTE | 2019-10-21 18:39 | CONS ---
INFECTIOUS DISEASE CONSULTATION DATE OF CONSULTATION: DATE OF DICTATION: 10/21/2019 REQUESTING PHYSICIAN: Hospitalist service HISTORY: This is a 64-year-old man with past medical history of diabetes, peripheral neuropathy, mitral valve prolapse. His PCP is Dr. Vaz. He presented to the ER on October 19 when he presented to the ER with a 10-day history of worsening elbow pain. At that time, he was noted to have left elbow bursitis. He had the area aspirated. He was given a dose of Ancef and discharged on doxycycline. He then returned the next day with worsening swelling of his arm. He denied any trauma. He had no fevers or chills. 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 This is the 1st time this has ever happened. In the ER he then got vancomycin, clindamycin, and ceftriaxone and is currently on vancomycin and ceftriaxone. PAST MEDICAL HISTORY: Notable for diabetes, neuropathy, and mitral valve prolapse. SURGICAL HISTORY: No surgical history. FAMILY HISTORY: Notable for diabetes. 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 He stopped smoking 20 years ago. Social alcohol. He lives with his family. REVIEW OF SYSTEMS: He has no cough. No nausea, vomiting, fevers, or chills. ALLERGIES: He is allergic to PENICILLIN, which is manifested by GI upset. He has a SHELLFISH and a BEE VENOM allergy. MEDICATIONS: At home include vitamin C, gabapentin, Glipizide, Tradjenta, Rapaflo, and the doxycycline, which was just started. PHYSICAL EXAMINATION: General: He is a pleasant man. He is awake and alert. Vital Signs: Temperature is 98.8, pulse 181, blood pressure 125/58, respiratory rate is 18. He is saturating 95% on room air. He weighs 90 kg. HEENT: He is normocephalic. His eyes are anicteric. Neck: Supple. Lungs: Clear to auscultation. Heart: Regular rate and rhythm. Abdomen: Soft, nontender. Extremities: Notable for he has right elbow swelling confined to the olecranon bursa. He has full range of motion of the shoulder joint. He has some surrounding erythema as well. LABORATORIES: Notable for white count of 6.5, sedimentation rate 18, hemoglobin 14.3, platelets 134, BUN 20, creatinine 1. LFTs are notable for ALT of 70, CRP is 3. He had the bursa aspirated. The crystals were negative, 94% polys and is now growing coagulase-positive staph. He had an elbow x-ray done as well. Shows foot swelling without any fracture or calcifications. In summary, this is a 64-year-old man with: 1. Olecranon bursitis, staph awaiting further sensitivities. Would ask orthopaedics to see if the bursa needs to be re-aspirated. Would continue ceftriaxone and vancomycin at this time. 2. Poorly controlled diabetes with a hemoglobin A1C of over 11. He needs diabetic education. Further recommendations to follow. KAYLIE CLIFFORD M.D. [id number] MTDD
[2019-10-21] MEDS ORDERED: ONDANSETRON 4 MG/2 ML VIAL IVPB PRN (18:53)
--- NOTE | 2019-10-21 19:00 | CONSULT ---
Consult Consult Specialty:: Endocrine Referred by:: Jose Reyes MD Reason for Consultation:: DMT2 - History of Present Illness Chief Complaint: pain and swelling rt elbow and high sugars History of Present Illness: 64 yo male with a history of DMT2,with neuropathy and mitral valve prolapse presented for worsening right elbow warmth, erythema and swelling. The patient states that he believes a blister on his elbow became infected after he picked at the scab. The patient had previously been treated in the ED yesterday for the same symptoms. The patient was discharged after draining his elbow 10/19/19, he has been on tradjenta and glipizide,has not checked his bs or maintained good diet.denies chest pain,cough,or hypoglycemia - Alcohol/Substance Use Hx Alcohol Use: No - Smoking History Smoking history: Former smoker Have you smoked in the past 12 months: No If you are a former smoker, when did you quit?: 2010 Home Medications - Allergies Allergies/Adverse Reactions: Allergies Allergy/AdvReac Type Severity Reaction Status Date / Time bee venom protein (honey bee) Allergy Verified 02/19/19 16:23 shellfish derived Allergy Verified 02/19/19 16:23 Penicillins AdvReac Vomiting, Verified 02/20/19 08:59 DIARRHEA - Home Medications Home Medications: Ambulatory Orders Ascorbate Calcium [Vitamin C] 500 mg PO DAILY 02/19/19 Gabapentin 600 mg PO TID 02/19/19 Glipizide 10 mg PO DAILY 02/19/19 Linagliptin [Tradjenta] 5 mg PO DAILY 02/19/19 Multivitamin [Poly-Vitamin] 1 each PO DAILY 02/19/19 Silodosin [Rapaflo] 8 mg PO DAILY 02/19/19 Doxycycline Hyclate 100 mg PO BID 10 Days #20 tablet 10/19/19 Review of Systems - Review of Systems Constitutional: reports: Loss of Appetite, Weakness Eyes: reports: No Symptoms HENT: reports: No Symptoms Neck: reports: No Symptoms Cardiovascular: reports: No Symptoms Respiratory: reports: No Symptoms Gastrointestinal: reports: Constipation Genitourinary: reports: No Symptoms Breasts: reports: No Symptoms Reported Musculoskeletal: reports: Extremity Pain, Joint Pain, Joint Swelling, Muscle Cramps, Muscle Weakness Integumentary: reports: No Symptoms Neurological: reports: Numbness Endocrine: reports: No Symptoms Physical Exam Vital Signs: Vital Signs Temperature 98.8 F 10/21/19 18:15 Pulse Rate 83 10/21/19 18:15 Respiratory Rate 19 10/21/19 18:15 Blood Pressure 140/78 10/21/19 18:15 O2 Sat by Pulse Oximetry (%) 95 10/20/19 22:57 Constitutional: Yes: Calm Eyes: Yes: EOM Intact HENT: Yes: Normocephalic Neck: Yes: Trachea Midline Cardiovascular: Yes: Regular Rate and Rhythm Respiratory: Yes: CTA Bilaterally Gastrointestinal: Yes: Normal Bowel Sounds ...Rectal Exam: Yes: Deferred Renal/: Yes: WNL Breast(s): Yes: WNL Musculoskeletal: Yes: Joint Stiffness, Joint Swelling, Muscle Pain, Muscle Weakness Extremities: Yes: Delayed Capillary Refill Edema: No Integumentary: Yes: Onychomycosis, Venous Stasis Changes Wound/Incision: Yes: Dressing Dry and Intact, Draining, Reddened, Excoriated Neurological: Yes: Alert Labs: CBC, BMP 10/21/19 07:52 10/21/19 07:52 Problem List - Problems (1) Type 2 diabetes mellitus with other diabetic neurological complication Problems reviewed: Yes Code(s): E11.49 - TYPE 2 DIABETES W OTH DIABETIC NEUROLOGICAL COMPLICATION (2) Cellulitis Problems reviewed: Yes Code(s): L03.90 - CELLULITIS, UNSPECIFIED Qualifiers: Site of cellulitis: extremity Site of cellulitis of extremity: upper extremity Laterality: right Qualified Code(s): L03.113 - Cellulitis of right upper limb (3) Poorly controlled diabetes mellitus Problems reviewed: Yes Code(s): E11.65 - TYPE 2 DIABETES MELLITUS WITH HYPERGLYCEMIA (4) Cellulitis of right upper extremity Code(s): L03.113 - CELLULITIS OF RIGHT UPPER LIMB (5) Olecranon bursitis of right elbow Code(s): M70.21 - OLECRANON BURSITIS, RIGHT ELBOW Assessment/Plan Current Active Problems bursitis septic elbow Cellulitis (Acute) Poorly controlled diabetes mellitus (Acute) htn diabetic neuropathy Abnormal Lab Results 10/20/19 10/20/19 10/21/19 00:30 00:30 07:52 Anion Gap 5 L 4 L BUN 24.4 H 20.1 H Random Glucose 304 H 227 H Hemoglobin A1c % ALT 84 H 70 H C-Reactive Protein 3.4 H Total Protein 5.8 L Albumin 3.3 L 10/21/19 07:52 Anion Gap BUN Random Glucose Hemoglobin A1c % 11.5 H ALT C-Reactive Protein Total Protein Albumin Laboratory Results - last 24 hr 10/20/19 10/20/19 10/20/19 00:30 00:30 00:30 WBC 9.0 RBC 5.00 Hgb 15.6 Hct 44.7 MCV 89.4 MCH 31.3 MCHC 34.9 RDW 13.0 Plt Count 157 MPV 8.9 Absolute Neuts (auto) 7.0 Neutrophils % 77.2 Lymphocytes % 12.9 Monocytes % 9.0 Eosinophils % 0.6 Basophils % 0.3 Nucleated RBC % 0 ESR Sodium 138 Potassium 4.2 Chloride 103 Carbon Dioxide 30 Anion Gap 5 L BUN 24.4 H Creatinine 1.3 Est GFR (CKD-EPI)AfAm 66.83 Est GFR (CKD-EPI)NonAf 57.66 POC Glucometer Random Glucose 304 H Hemoglobin A1c % Calcium 8.9 Phosphorus Magnesium Total Bilirubin 0.5 AST 31 ALT 84 H Alkaline Phosphatase 59 C-Reactive Protein 3.4 H Total Protein 6.6 Albumin 3.8 10/20/19 10/21/19 10/21/19 00:30 07:46 07:52 WBC 6.5 RBC 4.69 Hgb 14.3 Hct 41.1 MCV 87.7 MCH 30.6 MCHC 34.9 RDW 13.3 Plt Count 134 MPV 8.5 Absolute Neuts (auto) 4.8 Neutrophils % 74.5 Lymphocytes % 14.3 Monocytes % 10.1 Eosinophils % 0.8 Basophils % 0.3 Nucleated RBC % 0 ESR 18 Sodium Potassium Chloride Carbon Dioxide Anion Gap BUN Creatinine Est GFR (CKD-EPI)AfAm Est GFR (CKD-EPI)NonAf POC Glucometer 212 Random Glucose Hemoglobin A1c % Calcium Phosphorus Magnesium Total Bilirubin AST ALT Alkaline Phosphatase C-Reactive Protein Total Protein Albumin 10/21/19 10/21/19 10/21/19 07:52 07:52 12:05 WBC RBC Hgb Hct MCV MCH MCHC RDW Plt Count MPV Absolute Neuts (auto) Neutrophils % Lymphocytes % Monocytes % Eosinophils % Basophils % Nucleated RBC % ESR Sodium 139 Potassium 3.9 Chloride 106 Carbon Dioxide 30 Anion Gap 4 L BUN 20.1 H Creatinine 1.0 Est GFR (CKD-EPI)AfAm 91.78 Est GFR (CKD-EPI)NonAf 79.19 POC Glucometer 177 Random Glucose 227 H Hemoglobin A1c % 11.5 H Calcium 8.6 Phosphorus 3.1 Magnesium 2.2 Total Bilirubin 0.4 AST 24 ALT 70 H Alkaline Phosphatase 51 C-Reactive Protein Total Protein 5.8 L Albumin 3.3 L 10/21/19 17:38 WBC RBC Hgb Hct MCV MCH MCHC RDW Plt Count MPV Absolute Neuts (auto) Neutrophils % Lymphocytes % Monocytes % Eosinophils % Basophils % Nucleated RBC % ESR Sodium Potassium Chloride Carbon Dioxide Anion Gap BUN Creatinine Est GFR (CKD-EPI)AfAm Est GFR (CKD-EPI)NonAf POC Glucometer 159 Random Glucose Hemoglobin A1c % Calcium Phosphorus Magnesium Total Bilirubin AST ALT Alkaline Phosphatase C-Reactive Protein Total Protein Albumin plan: bgm qid novolog scale glimiperide 2mg daily januvia 50mg daily diet nutrition
[2019-10-21] MEDS: ATORVASTATIN CA 10 MG TABLET (FP) PO SCH (21:00)
[2019-10-22] MEDS ORDERED: VANCOMYCIN 1,000 MG in DEXTROSE 5%-WATER - 250 ML IVPB SCH (01:00)
[2019-10-22] MEDS: VANCOMYCIN 1 GRAM (PRE-DOCKED) 1,000 MG/250 ML BAG IVPB SCH ×2 (02:14→13:03)
[2019-10-22 02:44] LABS: URINE APPEARANCE CLEAR; URINE BILIRUBIN NEGATIVE (NEGATIVE); URINE COLOR DK YELLOW; URINE GLUCOSE (UA) NEGATIVE (NEGATIVE); URINE KETONE NEGATIVE (NEGATIVE); URINE LEUK ESTERASE NEGATIVE (NEGATIVE); URINE NITRITE NEGATIVE (NEGATIVE); URINE PROTEIN NEGATIVE (NEGATIVE)
[2019-10-22] MEDS: GABAPENTIN 300 MG CAPSULE (FP) PO SCH ×3 (06:00→21:05)
[2019-10-22] MEDS: HEPARIN NA (PORCINE) 5,000 UNITS/ML 1ML VIAL SQ SCH ×3 (06:00→21:05)
[2019-10-22] MEDS: GLIMEPIRIDE 2 MG TABLET (FP) PO SCH (06:00)
[2019-10-22] MEDS: sitaGLIPtin PHOSPHATE 50 MG TABLET PO SCH (06:00)
[2019-10-22] MEDS: INSULIN SLIDING SCALE (NOVOLOG) 1 VIAL SQ SCH ×4 (06:08→21:09)
[2019-10-22] MEDS ORDERED: GLIMEPIRIDE 4 MG TABLET (FP) PO SCH (07:00)
--- NOTE | 2019-10-22 08:22 | PN ---
Progress Note, Physician Chief Complaint: c/o nausea since yesterday with one episode of emesis last night History of Present Illness: 64 yo male with a history of uncontrolled DM with neuropathy and mitral valve prolapse presented to the ED with 10 days of worsening right elbow warmth, erythema and swelling. failed outpatient treatment and worsening swelling - Current Medication List Current Medications: Active Medications Aspirin (Ecotrin -) 81 mg PO DAILY [facility] Last Admin: 10/21/19 10:10 Dose: 81 mg Atorvastatin Calcium (Lipitor -) 10 mg PO HS [facility] Last Admin: 10/21/19 21:00 Dose: 10 mg Gabapentin (Neurontin -) 600 mg PO TID [facility] Last Admin: 10/22/19 06:00 Dose: 600 mg Glimepiride (Amaryl -) 2 mg PO DAILY@0700 [facility] Last Admin: 10/22/19 06:00 Dose: 2 mg Heparin Sodium (Porcine) (Heparin -) 5,000 unit SQ TID [facility] Last Admin: 10/22/19 06:00 Dose: 5,000 unit Ceftriaxone Sodium 2 gm/ (Dextrose) 100 mls @ 200 mls/hr IVPB DAILY [facility]; Protocol Last Admin: 10/21/19 10:09 Dose: 200 mls/hr Vancomycin HCl (Vancomycin (Pre-Docked)) 1,000 mg in 250 mls @ 166.667 mls/hr IVPB Q12H [facility]; Protocol Last Admin: 10/22/19 02:14 Dose: 166.667 mls/hr Insulin Aspart (Novolog Vial Sliding Scale -) 1 vial SQ ACHS [facility]; Protocol Last Admin: 10/22/19 06:08 Dose: 3 units Lisinopril (Prinivil) 5 mg PO DAILY [facility] Last Admin: 10/21/19 10:09 Dose: 5 mg Ondansetron HCl (Zofran Injection) 8 mg IVPB Q8H PRN PRN Reason: NAUSEA Last Admin: 10/22/19 05:34 Dose: 8 mg Sitagliptin Phosphate (Januvia -) 50 mg PO DAILY@0700 [facility] Last Admin: 10/22/19 06:00 Dose: 50 mg Tamsulosin HCl (Flomax -) 0.4 mg PO DAILY@0830 [facility] Last Admin: 10/21/19 10:09 Dose: 0.4 mg - Objective Vital Signs: Vital Signs Temperature 97.9 F 10/22/19 06:22 Pulse Rate 71 10/22/19 06:22 Respiratory Rate 20 10/22/19 06:22 Blood Pressure 137/77 10/22/19 06:22 O2 Sat by Pulse Oximetry (%) 97 10/21/19 22:43 Constitutional: Yes: Well Nourished, No Distress, Calm Eyes: Yes: WNL, Conjunctiva Clear HENT: Yes: WNL, Atraumatic, Normocephalic Neck: Yes: WNL, Supple, Trachea Midline Cardiovascular: Yes: WNL, Regular Rate and Rhythm Respiratory: Yes: WNL, Regular, CTA Bilaterally Gastrointestinal: Yes: Normal Bowel Sounds, Vomiting (x 1 last night, non bloody ) ...Rectal Exam: Yes: Deferred Genitourinary: Yes: WNL Breast(s): Yes: WNL Musculoskeletal: Yes: Joint Swelling (to right elbow, right forarm and hand) Extremities: Yes: Other Edema: Yes Edema: RUE: Trace Peripheral Pulses WNL: Yes Peripheral Pulses: Left Radial: 2+, Right Radial: 2+, Left Doralis Pedis: 2+, Right Dorsalis Pedis: 2+, Left Femoral: 2+, Right Femoral: 2+ Integumentary: Yes: Erythema (to right elbow) Neurological: Yes: WNL ...Motor Strength: WNL Psychiatric: Yes: WNL Labs: CBC, BMP 10/21/19 07:52 10/21/19 07:52 Problem List - Problems (1) Cellulitis of right elbow Assessment/Plan: Resolving right elbow infected olecranon bursitis. seen by Dr Chacon-no surgery needed at this time ID following c/w abx F/u as out patient with Dr Chacon as needed Code(s): L03.113 - CELLULITIS OF RIGHT UPPER LIMB (2) Diabetes Assessment/Plan: blood sugars better controlled BGM AC/HS with novolog SS appreciate endo consult c/w januvia/glimiperide diabetic diet Code(s): E11.9 - TYPE 2 DIABETES MELLITUS WITHOUT COMPLICATIONS (3) Prophylactic measure Assessment/Plan: FEN Fluids: adequate PO intake Electrolytes: replete as indicated Nutrition: diabetic diet DVT prophylaxis: heparin sq oob, ambulation Dispo: continues to require inpatient care. Full code discharge planning pending abx course Code(s): Z29.9 - ENCOUNTER FOR PROPHYLACTIC MEASURES, UNSPECIFIED (4) Neuropathy Assessment/Plan: c/w neurontin PT Code(s): G62.9 - POLYNEUROPATHY, UNSPECIFIED (5) MVP (mitral valve prolapse) Code(s): I34.1 - NONRHEUMATIC MITRAL (VALVE) PROLAPSE (6) HTN (hypertension) Assessment/Plan: c/w lisinipril Code(s): I10 - ESSENTIAL (PRIMARY) HYPERTENSION (7) HLD (hyperlipidemia) Assessment/Plan: low fat/cholesterol diet c/w atorvastatin Code(s): E78.5 - HYPERLIPIDEMIA, UNSPECIFIED (8) Nausea & vomiting Assessment/Plan: most likely related to abx therapy zofran prn Code(s): R11.2 - NAUSEA WITH VOMITING, UNSPECIFIED Visit type - Emergency Visit Emergency Visit: Yes ED Registration Date: 10/21/19 Care time: The patient presented to the Emergency Department on the above date and was hospitalized for further evaluation of their emergent condition. - New Patient This patient is new to me today: Yes Date on this admission: 10/22/19 - Critical Care Critical Care patient: No - Discharge Referral Referred to [facility] No
--- NOTE | 2019-10-22 10:08 | PN ---
Progress Note (short form) - Note Progress Note: Pt seen and examined. In short he has a recurrent right elbow olecranon bursitis. It was drained in the ER 2 days ago. They got out a small amount of fluid. It was improved dramatically since then, and since being on IV antibiotics (Vancomycin and ceftriaxone). Now he states he has no pain at rest or with motion. No systemic symptoms. AVSS WBC now 6.5 ESR = 18 PE Right elbow olecranon bursa is very mildly swollen, mildly erythematous. NVI Full ROM in all planes with no pain at all. Not tender to palpation over the bursa. No drainage. X-rays Nl Imp Resolving right elbow infected olecranon bursitis. Rec No surgery needed at this time Con't with the IV antibiotics, switch to PO as per ID F/u with me as an out patient as needed
[2019-10-22] MEDS: ONDANSETRON 4 MG/2 ML VIAL IVPB PRN (11:39)
[2019-10-22] MEDS: LISINOPRIL 5 MG TABLET (FP) PO SCH ×2 (11:49→14:26)
[2019-10-22] MEDS: TAMSULOSIN HCL 0.4 MG CAP PO SCH ×2 (11:49→14:26)
[2019-10-22] MEDS: ASPIRIN COATED 81 MG TABLET.EC PO SCH ×2 (11:49→14:27)
[2019-10-22] MEDS ORDERED: DEXTROSE 5%-WATER 100 ML IVPB ONE (11:53)
[2019-10-22] MEDS: CEFTRIAXONE 2 GM in DEXTROSE 5%-WATER 100 ML IVPB SCH (12:22)
--- NOTE | 2019-10-22 14:43 | PN ---
Progress Note (short form) - Note Progress Note: reports some improvement Vital Signs Period Temp Pulse Resp BP Sys/Rivera Pulse Ox Last 24 Hr 97.9 F-98.8 F 69-83 18-20 112-140/59-78 97-97 cor-rrr lungs decreased bs at bases abd soft,nt ext still some erythema and fluctuance elbow with some erythema of the forearm - improved from yesterday) CBC, BMP 10/21/19 07:52 10/21/19 07:52 cultures of elbow fluid with MSSA a/p septic Olecronon bursitis- with cellulitis- staph aureus- d/c rocephin/ vancomycin cefazolin 2 grams q8h hopefully po antibiotics in am ortho does not think he needs drainage poorly controlled DM_ hgba1c over 11 needs diabetic education Problem List - Problems (1) Olecranon bursitis of right elbow Code(s): M70.21 - OLECRANON BURSITIS, RIGHT ELBOW (2) Cellulitis of right upper extremity Code(s): L03.113 - CELLULITIS OF RIGHT UPPER LIMB (3) Poorly controlled diabetes mellitus Code(s): E11.65 - TYPE 2 DIABETES MELLITUS WITH HYPERGLYCEMIA
[2019-10-22] MEDS: CEFAZOLIN 2 GM in SODIUM CHLORIDE 100 ML IVPB SCH (15:37)
[2019-10-22 18:26] LABS: BASO % 0.2 % (0-2.0); EOS % 0.2 % (0-4.5); HEMATOCRIT 41.4 % (35.4-49); HEMOGLOBIN 14.4 GM/dL (11.7-16.9); LYMPH % 11.6 % (8-40); MCH 30.9 pg (25.7-33.7); MCHC 34.7 g/dl (32.0-35.9); MEAN CELL VOLUME 89.1 fl (80-96); MONO % 8.5 % (3.8-10.2); NEUT % 79.5 % (42.8-82.8); PLATELET COUNT 158 K/MM3 (134-434); RBC 4.65 M/mm3 (4.00-5.60); RDW 13.1 % (11.9-15.9); WHITE BLOOD COUNT 7.3 K/mm3 (4.0-10.0)
[2019-10-22 18:51] LABS: BLOOD UREA NITROGEN 16.6 mg/dL (7-18); CALCIUM 8.8 mg/dL (8.5-10.1); CREATININE 1.1 mg/dL (0.55-1.3); POTASSIUM 4.1 mmol/L (3.5-5.1)
[2019-10-22 19:01] LABS: URIC ACID 4.9 mg/dL (2.6-7.2)
[2019-10-22] MEDS: ATORVASTATIN CA 10 MG TABLET (FP) PO SCH (21:05)
[2019-10-23] MEDS ORDERED: SODIUM CHLORIDE 100 ML IVPB ONE (00:49)
[2019-10-23] MEDS ORDERED: ceFAZolin SODIUM 1 GM VIAL ONE (00:49)
[2019-10-23] MEDS: ONDANSETRON 4 MG/2 ML VIAL IVPB PRN ×2 (01:28→10:00)
[2019-10-23] MEDS: CEFAZOLIN 2 GM in SODIUM CHLORIDE 100 ML IVPB SCH ×2 (01:28→10:05)
[2019-10-23] MEDS: GABAPENTIN 300 MG CAPSULE (FP) PO SCH ×2 (06:02→13:52)
[2019-10-23] MEDS: GLIMEPIRIDE 2 MG TABLET (FP) PO SCH (06:02)
[2019-10-23] MEDS: HEPARIN NA (PORCINE) 5,000 UNITS/ML 1ML VIAL SQ SCH ×2 (06:02→13:53)
[2019-10-23] MEDS: sitaGLIPtin PHOSPHATE 50 MG TABLET PO SCH (06:02)
[2019-10-23] MEDS: INSULIN SLIDING SCALE (NOVOLOG) 1 VIAL SQ SCH ×2 (06:04→12:05)
--- NOTE | 2019-10-23 08:39 | DS ---
Physical Exam: SUBJECTIVE: Patient seen and examined Medically stable for discharge to home without services OBJECTIVE: Vital Signs Period Temp Pulse Resp BP Sys/Rivera Pulse Ox Last 24 Hr 97.8 F-98.7 F 65-77 20-20 115-128/58-74 96-98 PHYSICAL EXAM Constitutional: Yes: Well Nourished, No Distress, Calm Eyes: Yes: WNL, Conjunctiva Clear HENT: Yes: WNL, Atraumatic, Normocephalic Neck: Yes: WNL, Supple, Trachea Midline Cardiovascular: Yes: WNL, Regular Rate and Rhythm Respiratory: Yes: WNL, Regular, CTA Bilaterally Gastrointestinal: Yes: Normal Bowel Sounds,abd soft non temder ...Rectal Exam: Yes: Deferred Genitourinary: Yes: WNL Breast(s): Yes: WNL Musculoskeletal: Yes: Joint Swelling (to right elbow) Extremities: Yes: Other Edema: Yes Edema: RUE: Trace Peripheral Pulses WNL: Yes Peripheral Pulses: Left Radial: 2+, Right Radial: 2+, Left Doralis Pedis: 2+, Right Dorsalis Pedis: 2+, Left Femoral: 2+, Right Femoral: 2+ Integumentary: Yes: Erythema (to right elbow) Neurological: Yes: WNL ...Motor Strength: WNL Psychiatric: Yes: WNL. LABS Laboratory Results - last 24 hr 10/22/19 10/22/19 10/22/19 11:44 16:30 16:30 WBC 7.3 RBC 4.65 Hgb 14.4 Hct 41.4 MCV 89.1 MCH 30.9 MCHC 34.7 RDW 13.1 Plt Count 158 MPV 9.0 Absolute Neuts (auto) 5.8 Neutrophils % 79.5 Lymphocytes % 11.6 Monocytes % 8.5 Eosinophils % 0.2 Basophils % 0.2 Nucleated RBC % 0 Sodium Potassium Chloride Carbon Dioxide Anion Gap BUN Creatinine Est GFR (CKD-EPI)AfAm Est GFR (CKD-EPI)NonAf POC Glucometer 257 Random Glucose Uric Acid Calcium Triglycerides Cholesterol Total LDL Cholesterol HDL Cholesterol TSH Vancomycin Pre-Dose 18.8 10/22/19 10/22/19 10/22/19 16:30 16:30 17:42 WBC RBC Hgb Hct MCV MCH MCHC RDW Plt Count MPV Absolute Neuts (auto) Neutrophils % Lymphocytes % Monocytes % Eosinophils % Basophils % Nucleated RBC % Sodium 140 Potassium 4.1 Chloride 106 Carbon Dioxide 28 Anion Gap 6 L BUN 16.6 Creatinine 1.1 Est GFR (CKD-EPI)AfAm 81.79 Est GFR (CKD-EPI)NonAf 70.57 POC Glucometer 181 Random Glucose 184 H Uric Acid 4.9 Calcium 8.8 Triglycerides 116 Cholesterol 146 Total LDL Cholesterol 87 HDL Cholesterol 43 TSH 0.17 L Vancomycin Pre-Dose 10/22/19 10/23/19 20:49 06:03 WBC RBC Hgb Hct MCV MCH MCHC RDW Plt Count MPV Absolute Neuts (auto) Neutrophils % Lymphocytes % Monocytes % Eosinophils % Basophils % Nucleated RBC % Sodium Potassium Chloride Carbon Dioxide Anion Gap BUN Creatinine Est GFR (CKD-EPI)AfAm Est GFR (CKD-EPI)NonAf POC Glucometer 178 110 Random Glucose Uric Acid Calcium Triglycerides Cholesterol Total LDL Cholesterol HDL Cholesterol TSH Vancomycin Pre-Dose HOSPITAL COURSE: Date of Admission:10/21/19 Date of Discharge: 10/23/19 Problem List - Problems (1) Cellulitis of right elbow Assessment/Plan: Resolving right elbow infected olecranon bursitis. seen by Dr Chacon-no surgery needed at this time can follow with ID Dr Hugo in 2 weeks in office c/w Kefex 500mg qid x 10days F/u as out patient with Dr Chacon as needed Code(s): L03.113 - CELLULITIS OF RIGHT UPPER LIMB (2) Diabetes Assessment/Plan: blood sugars better controlled seen by endocrinology c/w januvia/glimiperide diabetic diet Code(s): E11.9 - TYPE 2 DIABETES MELLITUS WITHOUT COMPLICATIONS (3) Prophylactic measure Assessment/Plan: FEN Fluids: adequate PO intake Electrolytes: stable Nutrition: diabetic diet DVT prophylaxis: heparin sq oob, ambulation Dispo: Medically stable for discharge to home without services Code(s): Z29.9 - ENCOUNTER FOR PROPHYLACTIC MEASURES, UNSPECIFIED (4) Neuropathy Assessment/Plan: c/w neurontin Code(s): G62.9 - POLYNEUROPATHY, UNSPECIFIED (5) MVP (mitral valve prolapse) Code(s): I34.1 - NONRHEUMATIC MITRAL (VALVE) PROLAPSE (6) HTN (hypertension) Assessment/Plan: c/w lisinipril Code(s): I10 - ESSENTIAL (PRIMARY) HYPERTENSION (7) HLD (hyperlipidemia) Assessment/Plan: low fat/cholesterol diet c/w atorvastatin Code(s): E78.5 - HYPERLIPIDEMIA, UNSPECIFIED (8) Nausea & vomiting Assessment/Plan: resolved Code(s): R11.2 - NAUSEA WITH VOMITING, UNSPECIFIED Minutes to complete discharge: 45 Discharge Summary Problems reviewed: Yes Reason For Visit: OLECRANON BURSITIS OF RT ELBOW/CELLULITIS OF RT Current Active Problems Cellulitis (Acute) Cellulitis of right elbow (Acute) Diabetes (Acute) HLD (hyperlipidemia) (Acute) HTN (hypertension) (Acute) MVP (mitral valve prolapse) (Acute) Nausea & vomiting (Acute) Neuropathy (Acute) Poorly controlled diabetes mellitus (Acute) Prophylactic measure (Acute) Type 2 diabetes mellitus with other diabetic neurological complication (Acute) Hospital Course: HOSPITAL COURSE: Date of Admission:10/21/19 Date of Discharge: 10/23/19 Problem List - Problems (1) Cellulitis of right elbow Assessment/Plan: Resolving right elbow infected olecranon bursitis. seen by Dr Chacon-no surgery needed at this time can follow with ID Dr Hugo in 2 weeks in office c/w Kefex 500mg qid x 10days F/u as out patient with Dr Chacon as needed Code(s): L03.113 - CELLULITIS OF RIGHT UPPER LIMB (2) Diabetes Assessment/Plan: blood sugars better controlled seen by endocrinology c/w januvia/glimiperide diabetic diet Code(s): E11.9 - TYPE 2 DIABETES MELLITUS WITHOUT COMPLICATIONS (3) Prophylactic measure Assessment/Plan: FEN Fluids: adequate PO intake Electrolytes: stable Nutrition: diabetic diet DVT prophylaxis: heparin sq oob, ambulation Dispo: Medically stable for discharge to home without services Code(s): Z29.9 - ENCOUNTER FOR PROPHYLACTIC MEASURES, UNSPECIFIED (4) Neuropathy Assessment/Plan: c/w neurontin Code(s): G62.9 - POLYNEUROPATHY, UNSPECIFIED (5) MVP (mitral valve prolapse) Code(s): I34.1 - NONRHEUMATIC MITRAL (VALVE) PROLAPSE (6) HTN (hypertension) Assessment/Plan: c/w lisinipril Code(s): I10 - ESSENTIAL (PRIMARY) HYPERTENSION (7) HLD (hyperlipidemia) Assessment/Plan: low fat/cholesterol diet c/w atorvastatin Code(s): E78.5 - HYPERLIPIDEMIA, UNSPECIFIED (8) Nausea & vomiting Assessment/Plan: resolved Code(s): R11.2 - NAUSEA WITH VOMITING, UNSPECIFIED Condition: Improved - Instructions Diet, Activity, Other Instructions: DISCHARGE YOUR VISIT You came to the hospital because you developed increased swelling and pain in elbow extending to lower arm/hand. You were started on IV antibiotics and seen by orthopedics. The culture that were previously taken grew staph aureus sensitive to antibiotics. You Blood sugars were very elevated when you came in. An patient accounting representative saw you and 2 oral diabetic medication were prescribed. MEDICATIONS Please continue to take your home medications as prescribed. There was some changes: New medications glimeperide januvia keflex 500mg 4 times a day for another 10 days antibiotics DIET Follow a diabetic diet at home. No concentrated sweets, low carbs ADDITIONAL CARE Please make an appointment to see your primary care provider, 2 week from today. Follow with Dr Patten/Dr Hugo-call for an appointment If you have any further issue with the elbow you can follow with Dr Chacon ADDITIONAL INFORMATION Please call 911 or come directly to the emergency department if you experience unusual headache, vision change, shortness of breath, chest pain, numbness, tingling, loss of alertness/awareness, loss of function, unusual bleeding or any alarming symptoms. Thank you for allowing me to care for you. Alireza Smith, ACNP, [facility] [phone] Referrals: Yong Hugo MD [Staff Physician] - 2 Weeks (call for appointment ) Tonny Chacon MD [Staff Physician] - Cory Vaz MD [Primary Care Provider] - - Home Medications Comprehensive Discharge Medication List: Ambulatory Orders Ascorbate Calcium [Vitamin C] 500 mg PO DAILY 02/19/19 Gabapentin 600 mg PO TID 02/19/19 Multivitamin [Poly-Vitamin] 1 each PO DAILY 02/19/19 Silodosin [Rapaflo] 8 mg PO DAILY 02/19/19 Aspirin Coated [Ecotrin -] 81 mg PO DAILY #30 tablet.ec 10/22/19 Atorvastatin Ca [Lipitor] 10 mg PO HS #30 tablet 10/22/19 Glimepiride [Amaryl -] 2 mg PO DAILY@0700 #30 tablet 10/22/19 Insulin Sliding Scale [Novolog Vial Sliding Scale -] 1 vial SQ ACHS #1 units Lisinopril [Prinivil] 5 mg PO DAILY tablet 10/22/19 Sitagliptin Phosphate [Januvia -] 50 mg PO DAILY@0700 tablet 10/22/19 Prescription Drug Monitoring Program (I-STOP) results: I-STOP not reviewed Problem List - Problems (1) Cellulitis of right elbow Code(s): L03.113 - CELLULITIS OF RIGHT UPPER LIMB (2) Diabetes Code(s): E11.9 - TYPE 2 DIABETES MELLITUS WITHOUT COMPLICATIONS (3) Prophylactic measure Code(s): Z29.9 - ENCOUNTER FOR PROPHYLACTIC MEASURES, UNSPECIFIED (4) Neuropathy Code(s): G62.9 - POLYNEUROPATHY, UNSPECIFIED (5) MVP (mitral valve prolapse) Code(s): I34.1 - NONRHEUMATIC MITRAL (VALVE) PROLAPSE (6) HTN (hypertension) Code(s): I10 - ESSENTIAL (PRIMARY) HYPERTENSION (7) HLD (hyperlipidemia) Code(s): E78.5 - HYPERLIPIDEMIA, UNSPECIFIED (8) Nausea & vomiting Code(s): R11.2 - NAUSEA WITH VOMITING, UNSPECIFIED This patient is new to me today: No Emergency Visit: Yes ED Registration Date: 10/21/19 Care time: The patient presented to the Emergency Department on the above date and was hospitalized for further evaluation of their emergent condition. Critical Care patient: No - Discharge Referral Referred to [facility] No
[2019-10-23] MEDS: TAMSULOSIN HCL 0.4 MG CAP PO SCH (09:11)
[2019-10-23] MEDS: LISINOPRIL 5 MG TABLET (FP) PO SCH (10:05)
[2019-10-23] MEDS: ASPIRIN COATED 81 MG TABLET.EC PO SCH (10:05)
[2019-10-23 10:06] VITALS: BP 141/72; PULSE 76; TEMP 98.2
--- NOTE | 2019-10-23 10:44 | PN ---
Progress Note (short form) - Note Progress Note: Pt seen and examined. Pt states his right elbow feels fine, no pain, full ROM. PE Right elbow continues to improve. Full painless ROM Olecranon bursa with mild erythema, non tender. No drainage Imp Overall infected right olecranon bursitis has resolved. Rec No surgery needed F/U as an out pt as needed Con't abx as per ID
[2019-10-23 12:11] LABS: MICROALBUMIN/CREATININE RATIO 11.9 mg/g creat (0.0-30.0)
--- NOTE | 2019-10-23 12:49 | PN ---
Progress Note (short form) - Note Progress Note: continued improvement Vital Signs Period Temp Pulse Resp BP Sys/Rivera Pulse Ox Last 24 Hr 97.8 F-98.7 F 65-77 18-20 115-141/58-74 98-99 cor-rrr lungs clear elbow with fluid in the bursa, less erythema CBC, BMP 10/22/19 16:30 10/22/19 16:30 cultures of elbow fluid with MSSA a/p septic Olecronon bursitis- with cellulitis- staph aureus- d/c rocephin/ vancomycin can switch to po keflex 500 qid for another 10 days (total 14 days) can f/u in our office with Dr Hugo [phone] poorly controlled DM_ hgba1c over 11 needs diabetic education Problem List - Problems (1) Olecranon bursitis of right elbow Code(s): M70.21 - OLECRANON BURSITIS, RIGHT ELBOW (2) Cellulitis of right upper extremity Code(s): L03.113 - CELLULITIS OF RIGHT UPPER LIMB (3) Poorly controlled diabetes mellitus Code(s): E11.65 - TYPE 2 DIABETES MELLITUS WITH HYPERGLYCEMIA
[2019-10-23] MEDS ORDERED: CEPHALEXIN MONOHYDRATE 500 MG CAPSULE (UD) PO SCH (18:00)
[2019-10-24] MEDS ORDERED: CEPHALEXIN MONOHYDRATE 500 MG CAPSULE (UD) PO SCH (10:00)
== END 2019-10-23 14:56 | disposition home or self-care (01) | DRG 558 ==
LOC: JER 22:25 → JERBED 10-21 00:12 → J8W 10-21 05:05
PROVIDERS: ADMIT Internal Medicine; ATTEND Nurse Practitioner Acute Care
DX: M70.21 Olecranon bursitis, right elbow (principal); L03.113 Cellulitis of right upper limb; B95.61 Methicillin susceptible Staphylococcus aureus infection as the cause of diseases classified elsewhere; I34.1 Nonrheumatic mitral (valve) prolapse; Z88.0 Allergy status to penicillin; Z79.84 Long term (current) use of oral hypoglycemic drugs; E11.65 Type 2 diabetes mellitus with hyperglycemia; Z87.891 Personal history of nicotine dependence; I10 Essential (primary) hypertension; E11.42 Type 2 diabetes mellitus with diabetic polyneuropathy; E78.5 Hyperlipidemia, unspecified; R11.2 Nausea with vomiting, unspecified
CPT/HCPCS: 36415; 80048; 80053; 80061; 81003; 82043; 82570; 82962; 83036; 83721; 83735; 84100; 84443; 84550; 85025; 85651; 86140; 87040; 93005; 93010; 97116-GP; 97161-GP; 99284-25; G0480; J1644